=== PATIENT | female | born 1960 ===

== ENCOUNTER 2022-02-15 22:04 | Emergency (ER) | payer BC ==
[2022-02-15 22:09] VITALS: PULSE 124
[2022-02-15 22:43] LABS: ANION GAP 16.2 meq/L (7-15)
[2022-02-15] MEDS ORDERED: Sodium Chloride 0.9% 10 ML Syringe FLUSH PRN (22:44)
[2022-02-15] MEDS ORDERED: NS + KCl 20mEq/L 1,000 ML IV SCH (22:45)
[2022-02-15 22:54] LABS: BARBITURATE SCREEN,URINE NEGATIVE (NEGATIVE); BENZODIAZEPINES SCREEN,URINE NEGATIVE (NEGATIVE); EDDP,URINE SCREEN NEGATIVE (NEGATIVE); TCA SCREEN,URINE NEGATIVE (NEGATIVE); THC SCREEN,URINE 50 NG/ML NEGATIVE (NEGATIVE)
[2022-02-15 22:55] LABS: BUPRENORPHINE SCREEN,URINE NEGATIVE (NEGATIVE)
[2022-02-15] MEDS: Potassium Chloride Riders 10 MEQ in Premix Bag 1 BAG IV SCH (23:16)
[2022-02-16] MEDS: Acetaminophen 500 MG Tab PO PRN ×3 (00:24→10:46)
[2022-02-16] MEDS ORDERED: Sodium Chloride 0.9% 1,000 ML IV SCH (00:30)
[2022-02-16] MEDS: Potassium Chloride Riders 10 MEQ in Premix Bag 1 BAG IV SCH ×5 (00:52→06:20)
[2022-02-16] MEDS ORDERED: Melatonin 3 MG Tab PO PRN (02:02)
[2022-02-16 07:10] LABS: ANION GAP 6.1 meq/L (7-15)
[2022-02-16 17:21] VITALS: BP 130/72
== END 2022-02-16 15:00 | disposition home or self-care (01) ==
LOC: LL.ED 22:04
DX: S06.0X0A Concussion without loss of consciousness, initial encounter (principal); Z79.899 Other long term (current) drug therapy; W17.89XA Other fall from one level to another, initial encounter
CPT/HCPCS: 36415; 70450; 80053; 80305-QW; 80307; 82947; 85025; 96361; 96365; 96366; 99284; 99284-25; A9270-GY; J3480; J7030